=== PATIENT | female | born 1975 | race Caucasian/White ===

== ENCOUNTER 2023-08-29 20:44 | Emergency (ER) | payer MEDICAID, OTHER ==
[2023-08-29 21:48] LABS: BASOPHILS PERCENT AUTO 0.3 % (0.2-1.5); EOSINOPHILS PERCENT AUTO 0.1 % (0.6-8.1); HEMATOCRIT 33.6 % (34.2-48.2); HEMOGLOBIN 10.7 g/dL (11.4-15.5); MEAN CORPUSCULAR HEMOGLOBIN 23.3 pg (23.9-33.9); MEAN CORPUSCULAR HGB CONC 31.9 g/dL (31.9-34.8); MEAN CORPUSCULAR VOLUME 72.9 fL (76.7-100.5); MEAN PLATELET VOLUME 8.1 fL (7.1-12.4); MONOCYTES ABSOLUTE AUTO 0.6 x10-3/uL (0.3-1.0); MONOCYTES PERCENT AUTO 8.1 % (4.4-15.7); NEUTROPHILS ABSOLUTE AUTO 5.7 x10-3/uL (1.5-6.3); NEUTROPHILS PERCENT AUTO 77.5 % (30.8-76.2); PLATELET COUNT,PLT 306 x10(3)uL (151-488); RED CELL DISTRIBUTION WIDTH 16.8 % (12.3-16.5); WHITE BLOOD CELL COUNT,WBC 7.4 x10-3/uL (3.0-10.3)
[2023-08-29 21:53] LABS: BLOOD UREA NITROGEN,BUN 8 mg/dL (7-18); CALCIUM 8.4 mg/dL (8.6-10.2); CARBON DIOXIDE,CO2 24 mmol/L (21-32); CHLORIDE,CL 102 mmol/L (100-110); CREATININE 0.8 mg/dL (0.55-1.02); EST CRCL DRUG DOSING (CG) 75.07 mL/min; ESTIMATED GFR 91 mL/min (>60); GLUCOSE RANDOM 118 mg/dL (80-116); SODIUM,NA 136 mmol/L (135-145)
[2023-08-29 21:58] LABS: RED BLOOD CELL COUNT 4.62 x10(6)uL (3.60-5.20)
[2023-08-29 22:02] LABS: BILIRUBIN,URINE NEGATIVE (NEGATIVE); GLUCOSE,URINE 50 mg/dL (NORMAL); KETONES,URINE NEGATIVE (NEGATIVE); LEUKOCYTE ESTERASE,URINE NEGATIVE (NEGATIVE); NITRITE,URINE NEGATIVE (NEGATIVE); OCCULT BLOOD,URINE NEGATIVE (NEGATIVE); PROTEIN,URINE NEGATIVE (NEGATIVE); UROBILINOGEN,URINE NORMAL (NEGATIVE)
[2023-08-29 22:11] LABS: APPEARANCE,URINE CLEAR (CLEAR); BACTERIA,URINE FEW (NS); COLOR,URINE YELLOW (YELLOW); RBC,URINE 0-5 (0-5); SQUAMOUS EPITHELIAL CELLS,UR OCCASIONAL (NS,R,O); WBC,URINE 0-5 (0-5)
[2023-08-29 22:28] LABS: INFLUENZA A NAA POSITIVE (NEGATIVE); INFLUENZA B NAA NEGATIVE (NEGATIVE); RESPIRATORY SYNCYTIAL VIR NAA NEGATIVE (NEGATIVE)
[2023-08-29 22:31] LABS: CORONAVIRUS COVID-19 NAA NEGATIVE (NEGATIVE)
[2023-08-29 22:56] VITALS: BP 115/69; PULSE 83
[2023-08-29] MEDS: Iopamidol 755 Mg/ML 100 ML Bottle IV ONE (22:57)
[2023-08-30] MEDS: Oseltamivir 75 MG Cap PO ONE (00:03)
== END 2023-08-30 00:15 | disposition home or self-care (01) ==
LOC: FB.ED 20:44
DX: J10.1 Influenza due to other identified influenza virus with other respiratory manifestations (principal); R55 Syncope and collapse; D50.9 Iron deficiency anemia, unspecified; Z86.16 Personal history of COVID-19; Z90.49 Acquired absence of other specified parts of digestive tract
CPT/HCPCS: 0241U; 36415; 71045; 71275; 80048; 81001; 84484; 85025; 85379; 86140; 93005; 93010; 99284; A9270; Q9967

== ENCOUNTER 2023-10-11 07:09 | Day surgery (SDC) | payer OTHER ==
[~2023-10-11 07:09] MED LIST: Sodium Chloride 0.9% 10 ML Syringe FLUSH PRN
[2023-10-11] MEDS ORDERED: Midazolam 1 MG/ML 2 ML SDV IV ONE (07:10)
[2023-10-11] MEDS ORDERED: Propofol 200 MG/20 ML SDV IV ONE (07:10)
[2023-10-11] MEDS ORDERED: fentaNYL 100 MCG/2 ML SDV IV ONE (07:10)
[2023-10-11] MEDS: Lactated Ringers 1,000 ML IV SCH (07:38)
[2023-10-11] MEDS: Simethicone Drops 40 MG/0.6 ML 30 ML Bottle ONE (08:12)
[2023-10-11 09:40] VITALS: BP 110/73; PULSE 72
== END 2023-10-11 09:37 | disposition home or self-care (01) ==
LOC: FB.SDS 07:09
PROVIDERS: ATTEND Surgery
DX: Z12.11 Encounter for screening for malignant neoplasm of colon (principal); E78.5 Hyperlipidemia, unspecified; E66.9 Obesity, unspecified; K21.9 Gastro-esophageal reflux disease without esophagitis; Z79.899 Other long term (current) drug therapy; Z68.39 Body mass index [BMI] 39.0-39.9, adult; Z87.891 Personal history of nicotine dependence; Z80.0 Family history of malignant neoplasm of digestive organs; Z88.5 Allergy status to narcotic agent; Z88.8 Allergy status to other drugs, medicaments and biological substances
CPT/HCPCS: A9270-GY; J2250; J2704; J3010; J7120